=== PATIENT | female | born 2000 | race Caucasian/White ===

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

== ENCOUNTER 2021-04-08 13:42 | Emergency (ER) | payer SELFPAY ==
[~2021-04-08] VITALS: Ht 172 cm; Wt 90.0 kg
[~2021-04-08 13:42] MED LIST changes: -OMEP40CA27 PO; +OMEP40CA6 PO; +SERT-413; -SERT50TA9
--- NOTE | 2021-04-08 14:29 | ED Abdominal Pain ---
General Chief Complaint: Abdominal/GI Problems Stated Complaint: STOMACH TIGHTNESS/VOMITING Nursing Triage Note: Pt here with upper diffuse abdominal pain that worsens after meals x 2 months. States she was seen at [facility] and had blood work and had an US scheduled but she was unable to get out of work to go. Pt here today because her mother urged her to come and her pain "was bad" last night. Source of Information: Patient Exam Limitations: No Limitations History of Present Illness Date Seen by Provider: Apr 08, 2021 Time Seen by Provider: 13:50 Initial Comments Patient presents to the emergency room with 2 months of epigastric pain and nausea worsened by eating. She has been seen in the clinic for this complaint previously. She had an ultrasound scheduled but did not make it to the ultrasound due to her work schedule. Pain kept her awake last night. Labs were obtained in the clinic and were reviewed on her mobile device. They were unremar kable including lipase. Allergies and Home Medications Allergies Coded Allergies: No Known Drug Allergies (Unverified , 10/26/18) Home Medications Omeprazole 40 Mg Capsule.dr, 40 MG PO DAILY Prescribed by: BRANDEN LYON on 01/25/2048 Omeprazole 20 Mg Capsule.dr, 20 MG PO BID Prescribed by: ERICKSON ROMERO on 04/08/21 1506 Ondansetron 4 Mg Tab.rapdis, 4 MG PO Q6H PRN for NAUSEA-1ST LINE Prescribed by: BRANDEN LYON on 01/25/2048 Ondansetron 4 Mg Tab.rapdis, 4 MG SL Q4H PRN for NAUSEA/VOMITING Prescribed by: ERICKSON ROMERO on 04/08/21 1506 Sucralfate 1 Gm Tablet, 1 GM PO QID Crash and mix or dissolve into 5 to 10 mL water to make slurry. Take 30 min before meals and bedtime. Prescribed by: ERICKSON ROMERO on 04/08/21 1506 Patient Home Medication List Home Medication List Reviewed: Yes Review of Systems Review of Systems Constitutional: no symptoms reported EENTM: No Symptoms Reported Respiratory: No Symptoms Reported Cardiovascular: No Symptoms Reported Gastrointestinal: See HPI Genitourinary: No Symptoms Reported Musculoskeletal: no symptoms reported Skin: no symptoms reported Psychiatric/Neurological: No Symptoms Reported Endocrine: No Symptoms Reported Past Aqzyqtm-Arzhfn-Pnjucq Hx Patient Social History Tobacco Use?: No Smoking Status: Never a Smoker Substance use?: No Alcohol Use?: No Pt feels they are or have been: No Immunizations Up To Date Tetanus Booster (TDap): Less than 5yrs PED Vaccines UTD: No Seasonal Allergies Seasonal Allergies: Yes Past Medical History Surgeries: Yes Appendectomy Respiratory: Yes Asthma Cardiac: No Neurological: No Reproductive Disorders: No 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 oz. 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, no motor/sensory deficits, alert, normal mood/affect, oriented x 3 Skin: normal color, warm/dry Progress/Results/Core Measures Results/Orders My Orders Orders - ERICKOSN HERNÁNDEZ MD Ondansetron Oral Dissolve Tab (Zofran (04/08/21 14:30) Lidocaine 2% Viscous 15 Ml (Xylocaine Vi (04/08/21 14:30) Antacid Suspension (Mylanta Suspension (04/08/21 14:30) Medications Given in ED Current Medications Medications Dose Ordered Sig/Melanie Route Start Time Stop Time Status Last Admin Dose Admin Al Hydrox/Mg Hydrox/Simethicone 30 ml ONCE ONCE PO 04/08/21 14:30 04/08/21 14:31 DC 04/08/21 14:40 30 ML Lidocaine HCl 15 ml ONCE ONCE PO 04/08/21 14:30 04/08/21 14:31 DC 04/08/21 14:40 15 ML Ondansetron HCl 8 mg ONCE ONCE SL 04/08/21 14:30 04/08/21 14:31 DC 04/08/21 14:22 8 MG Vital Signs/I&O 04/08/21 04/08/21 04/08/21 13:54 14:46 15:13 Temp 37.0 37.2 37.2 Pulse 66 66 Resp 76 18 18 B/P (MAP) 118/76 (90) 113/76 (88) 113/76 (88) Pulse Ox 99 99 99 O2 Delivery Room Air Room Air Blood Pressure Mean: 90 Progress Progress Note : Progress Note Patient was treated with Zofran followed by GI cocktail. This reduced her pain by about 50%. This suggests gastritis and/or esophagitis as the source of her pain. See discharge instructions for treatment plan. Departure Impression Primary Impression: Epigastric pain Additional Impression: Nausea Disposition: 01 HOME, SELF-CARE Condition: Improved Departure-Patient Inst. Decision time for Depature: 15:00 Referrals: [facility] (PCP/Family) Primary Care Physician Patient Instructions: Gastritis, Acid Reflux and Gastroesophageal Reflux Disease in Adults Add. Discharge Instructions: Your abdominal pain and nausea are likely caused by gastritis and/or gastroesophageal reflux disease. Take an antacid such as omeprazole twice daily for the next 2 to 4 weeks. Additionally take Carafate (sucralfate) as prescribed. Use Zofran (ondansetron) as prescribed for nausea and vomiting. Follow-up with your primary care provider in 1 to 2 weeks. Consider obtaining an H. pylori test as this type of abdominal pain can be caused by H. pylori colonization. Avoid the following: Eating large meals, eating close to bedtime, caffeine, carbonation, chocolate, citrus fruits and juices, tomato products, mints, alcohol, tobacco, spicy foods, NSAID medications such as ibuprofen or naproxen, fatty or greasy foods, or anything else you know irritate your stomach. Call with questions or concerns. Return to the ER if you have worsening symptoms. All discharge instructions reviewed with patient and/or family. Voiced understanding. Scripts Sucralfate (Carafate) 1 Gm Tablet 1 GM PO QID, #120 TAB Crash and mix or dissolve into 5 to 10 mL water to make slurry. Take 30 min before meals and bedtime. Prov: ERICKSON HERNÁNDEZ MD 04/08/21 Ondansetron (Ondansetron Odt) 4 Mg Tab.rapdis 4 MG SL Q4H PRN for NAUSEA/VOMITING, #10 TAB Prov: ERICKSON HERNÁNDEZ MD 04/08/21 Omeprazole (Omeprazole) 20 Mg Capsule.dr 20 MG PO BID, #60 CAP Prov: ERICKSON HERNÁNDEZ MD 04/08/21 Work/School Note: Work Release Form Date Seen in the Emergency Department: Apr 08, 2021 Return to Work: Apr 09, 2021 Restrictions: No Restrictions Copy Copies To 1: NIKKI MARTIN JOSHUA T MD Apr 08, 2021 14:29
[2021-04-08] MEDS ORDERED: LIDOCAINE 2% VISCOUS 15 ML UDC PO ONE (14:30)
[2021-04-08] MEDS ORDERED: ANTACID SUSP 30 ML UDC (MYLANTA) PO ONE (14:30)
[2021-04-08] MEDS ORDERED: ONDANSETRON 4 MG (ZOFRAN) ORAL DISSOLVE TAB SL ONE (14:30)
[2021-04-08] MEDS ORDERED: ONDA4TAB11 SL (15:06)
[2021-04-08] MEDS ORDERED: OMEP20CA18 PO (15:06)
[2021-04-08] MEDS ORDERED: SUCR1TAB36 PO (15:06)
[2021-04-08 15:13] VITALS: BP 113/76
== END 2021-04-08 15:17 | disposition home or self-care (01) ==
LOC: EDUNIT# 13:42 → ER 13:44
DX: R10.13 Epigastric pain (principal); R11.0 Nausea; J45.909 Unspecified asthma, uncomplicated
CPT/HCPCS: 99283

== ENCOUNTER 2022-12-14 22:11 | Emergency (ER) | payer MEDICAID ==
[~2022-12-14] VITALS: Ht 172 cm; Wt 85.5 kg
[~2022-12-14 22:11] MED LIST changes: +ALBU6.7H13; -ALBU6.7H8; +OMEP20CA18 PO; +ONDA4TAB11 SL; +SUCR1TAB36 PO
[2022-12-14 22:44] VITALS: BP 95/71
[2022-12-14 23:18] LABS: BILIRUBIN,URINE NEGATIVE (NEGATIVE); CLARITY,URINE CLEAR; COLOR,URINE YELLOW; GLUCOSE, URINE (UA) NEGATIVE (NEGATIVE); KETONES,URINE TRACE (NEGATIVE); LEUKOCYTE ESTERASE ,URINE NEGATIVE (NEGATIVE); NITRITE,URINE NEGATIVE (NEGATIVE); PROTEIN,URINE NEGATIVE (NEGATIVE)
[2022-12-14 23:33] LABS: BACTERIA,URINE NEGATIVE /HPF; RBC,URINE RARE /HPF
--- NOTE | 2022-12-14 23:48 | ED Cough/URI ---
General Chief Complaint: COVID19 Suspect/Confirmed Stated Complaint: ABD PAIN - COUGH - CONGESTION - FEVER Source: patient (POOR/LIMITED HISTORIAN) History of Present Illness Date Seen by Provider: Dec 14, 2022 Time Seen by Provider: 22:55 Initial Comments PT ARRIVES VIA POV FROM HOME STATES SHE BEGAN GETTING SICK TONIGHT, DOES NOT KNOW HOW LONG AGO SHE BEGAN FEELING SICK C/O SUBJECTIVE FEVER C/O NON-PRODUCTIVE COUGH C/O NASAL CONGESTION C/O GENERALIZED ABDOMNINAL PAIN HAS NOT TAKEN ANYTHING FOR SYMPTOMS NO KNOWN SICK CONTACTS. PT IS NOT COVID OR FLU VACCINATED. LMP--BEGAN TODAY. NORMAL,. NO CONTROL Allergies and Home Medications Allergies Coded Allergies: No Known Drug Allergies (Unverified , 10/26/18) Patient Home Medication List Home Medication List Reviewed: Yes Albuterol Sulfate (Proventil Hfa) 6.7 Gm Hfa.aer.ad, (Reported) Entered as Reported by: MONALISA SEE on 01/24/202328 Amoxicillin (Amoxicillin) 875 Mg Tablet, 875 MG PO BID Prescribed by: DANNY MURPHY on 12/15/22 0024 Cetirizine HCl (Cetirizine HCl) 10 Mg Tablet, (Reported) Entered as Reported by: MONALISA SEE on 01/24/202328 Omeprazole (Omeprazole) 40 Mg Capsule.dr, 40 MG PO DAILY Prescribed by: BRANDEN LYON on 01/25/2048 Omeprazole (Omeprazole) 20 Mg Capsule.dr, 20 MG PO BID Prescribed by: ERICKSON ROMERO on 04/08/21 1506 Ondansetron (Ondansetron Odt) 4 Mg Tab.rapdis, 4 MG PO Q6H PRN for NAUSEA-1ST LINE Prescribed by: BRANDEN LYON on 01/25/20 0049 Ondansetron (Ondansetron Odt) 4 Mg Tab.rapdis, 4 MG SL Q4H PRN for NAUSEA/VOMITING Prescribed by: ERICKSON ROMERO on 04/08/21 1506 Sertraline HCl (Sertraline HCl) 50 Mg Tablet, (Reported) Entered as Reported by: MONALISA SEE on 01/24/202328 Sucralfate (Carafate) 1 Gm Tablet, 1 GM PO QID Prescribed by: ERICKSON ROMERO on 04/08/21 1506 Trazodone HCl (Trazodone HCl) 100 Mg Tablet, (Reported) Entered as Reported by: MONALISA SEE on 01/24/20 6670 Review of Systems Review of Systems Constitutional: see HPI, fever EENTM: see HPI, nose congestion, throat pain Respiratory: see HPI, cough; No short of breath Cardiovascular: no symptoms reported Gastrointestinal: see HPI, abdominal pain Genitourinary: see HPI LMP: Dec 14, 2022 Musculoskeletal: no symptoms reported Skin: no symptoms reported Psychiatric/Neurological: No Symptoms Reported Hematologic/Lymphatic: No Symptoms Reported Immunological/Allergic: no symptoms reported Past Xoodsev-Prvbzh-Rvfyqo Hx Patient Social History Tobacco Use?: No Substance use?: Yes Substance type: Marijuana Alcohol Use?: No Immunizations Up To Date Tetanus Booster (TDap): Less than 5yrs PED Vaccines UTD: No Seasonal Allergies Seasonal Allergies: Yes Past Medical History Surgeries: Yes Appendectomy Respiratory: Yes Asthma Cardiac: No Neurological: No 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 oz. 97.240687gz; 30.00 BMI Method:Stated General Appearance: WD/WN, no apparent distress, other (KEEPS EYES CLOSED AT ALL TIMES. ) HEENT: PERRL/EOMI, TMs normal, pharyngeal erythema; No tonsillar exudate; other (MILD NASAL CONGESTION AND CLEAR POST NASAL DRAINAGE) Neck: non-tender, full range of motion, supple, normal inspection; No lymphadenopathy (R), No lymphadenopathy (L) Respiratory: normal breath sounds, no respiratory distress, no accessory muscle use Cardiovascular: regular rate, rhythm, no murmur Gastrointestinal: soft, tenderness (MILD DIFFUSE TENDERNESS) Extremities: normal inspection, normal capillary refill Neurologic/Psychiatric: no motor/sensory deficits, alert, oriented x 3 Skin: normal color (DARK SKINNED), warm/dry; No rash; tattoos/piercings Progress/Results/Core Measures Suspected Sepsis SIRS Temperature: Pulse: Respiratory Rate: Blood Pressure / Mean: Results/Orders Lab Results Laboratory Tests Test 12/14/22 23:00 12/14/22 23:05 Range/Units Influenza Type A (RT-PCR) Not Detected Not Detecte Influenza Type B (RT-PCR) Not Detected Not Detecte SARS-CoV-2 RNA (RT-PCR) Not Detected Not Detecte Group A Streptococcus Screen NEGATIVE NEGATIVE Urine Color YELLOW Urine Clarity CLEAR Urine pH 6.0 5-9 Urine Specific [place] 1.025 H 1.016-1.022 Urine Protein NEGATIVE NEGATIVE Urine Glucose (UA) NEGATIVE NEGATIVE Urine Ketones TRACE H NEGATIVE Urine Nitrite NEGATIVE NEGATIVE Urine Bilirubin NEGATIVE NEGATIVE Urine Urobilinogen 0.2 < = 1.0 MG/DL Urine Leukocyte Esterase NEGATIVE NEGATIVE Urine RBC (Auto) TRACE-I H NEGATIVE Urine RBC RARE /HPF Urine WBC NONE /HPF Urine Crystals NONE /LPF Urine Bacteria NEGATIVE /HPF Urine Casts NONE /LPF Urine Mucus MODERATE H /LPF Urine Culture Indicated NO My Orders Orders - DANNY MURPHY DO Rapid Strep A Screen (12/14/22 22:56) Covid 19 Inhouse Test (12/14/22 22:56) Influenza A And B By Pcr (12/14/22 22:56) Isolation Central Supply Req (12/14/22 22:56) Urine Bedside (12/14/22 22:57) Ua Culture If Indicated (12/14/22 22:57) Rx-Amoxicillin Capsule (Rx-Polymox Capsu (12/15/22 00:21) Vital Signs/I&O 12/14/22 22:44 Temp 36.9 Pulse 102 Resp 20 B/P (MAP) 95/71 (79) Pulse Ox 98 O2 Delivery Room Air Capillary Refill : Progress Note : Progress Note PLACED IN ISOLATION ROOM PPE WORN COVID, FLU AND STREP TESTING DONE NO COUGH NO FEVER NO DYSPNEA NO HYPOXIA NO NAUSEA/VOMITING/DIARRHEA DURING ER STAY OFFERED TO DO ADDITIONAL TESTING SUCH CT SCAN AND OTHER LAB WORK AND PT DECLINES, STATES SHE IS READY TO GO HOME. DISCUSSED TEST RESULTS , ANTICIPATED COURSE, SYMPTOMATIC TREATMENT, MEDICATIONS, NEED FOR FOLLOW UP AND RETURN PRECAUTIONS. REVIEWED PRIOR RECORDS--ALL ER VISITS, FOR VARIOUS COMPLAINTS. Departure Impression Primary Impression: Pharyngitis Disposition: 01 HOME, SELF-CARE Condition: Stable Departure-Patient Inst. Decision time for Depature: 00:22 Referrals: [facility] (PCP/Family) Primary Care Physician Patient Instructions: Sore Throat, Adult ED, Upper Respiratory Infection ED Add. Discharge Instructions: LOTS OF CLEAR LIQUIDS--WATER, BROTH, JELLO, GATORADE TYLENOL 1 GRAM PLUS MOTRIN 800 MG 4 TIMES DAY FOR PAIN OR FEVER FREQUENT SALT WATER GARGLES OVER THE COUNTER MEDICATIONS FOR COUGH AND CONGESTION SUCH MUCINEX DM FOLLOW UP WITH [facility] IN 2-3 DAYS IF NO IMPROVEMENT, RETURN TO ER IF SYMPTOMS WORSEN All discharge instructions reviewed with patient and/or family. Voiced understanding. Scripts Amoxicillin (Amoxicillin) 875 Mg Tablet 875 MG PO BID, #20 TAB Prov: DANNY MURPHY DO 12/15/22 DANNY MURPHY DO Dec 14, 2022 23:48
[2022-12-15] MEDS ORDERED: RX-AMOXICILLIN 500 MG CAP #3 PPK PO STA (00:21)
[2022-12-15] MEDS ORDERED: AMOX875T2 PO (00:24)
== END 2022-12-15 01:00 | disposition home or self-care (01) ==
LOC: EDUNIT# 22:11 → ER 22:12
DX: J02.9 Acute pharyngitis, unspecified (principal); R10.84 Generalized abdominal pain; Z28.310 Unvaccinated for COVID-19; Z20.822 Contact with and (suspected) exposure to COVID-19
CPT/HCPCS: 81000; 84703; 87430; 87636